=== PATIENT | male | born 1970 | race African-American/Black ===

== ENCOUNTER 2019-10-01 17:06 | Emergency (ER) | payer SELFPAY ==
[~2019-10-01] VITALS: Ht 177.8 cm; Wt 68.0 kg
[2019-10-01] MEDS ORDERED: HYDROcodone-ACET 5/325MG TAB PO ONE (21:00)
[2019-10-01 21:13] VITALS: BP 124/84
== END 2019-10-01 21:15 | disposition home or self-care (01) ==
LOC: ER 17:06 → EDBD 17:06 → ER 21:15
DX: S22.42XA Multiple fractures of ribs, left side, initial encounter for closed fracture (principal); E78.5 Hyperlipidemia, unspecified; I10 Essential (primary) hypertension; W01.0XXA Fall on same level from slipping, tripping and stumbling without subsequent striking against object, initial encounter; Y93.89 Activity, other specified; Y99.8 Other external cause status; Y92.89 Other specified places as the place of occurrence of the external cause
CPT/HCPCS: 71101